=== PATIENT | male | born 1985 | race Caucasian/White ===

== ENCOUNTER 2022-04-22 08:56 | Outpatient (CLI) | payer BC, SELFPAY ==
[2022-04-22 13:38] LABS: Chloride* 102 mmol/L (96-114); Potassium* 5.5 mmol/L (3.6-5.1); Sodium* 138 mmol/L (135-149)
[2022-04-22 13:41] LABS: Blood Urea Nitrogen* 19 mg/dL (5-24); Calcium* 9.4 mg/dL (8.4-10.6); Carbon Dioxide* 28 mmol/L (20-32); Cholesterol* 196 mg/dL (90-199); Creatinine* 0.9 mg/dL (0.5-1.5); Estimated Glomerular Filt Rate 114 ml/min; Glucose* 89 mg/dL (60-115); Triglycerides* 61 mg/dL (40-149)
[2022-04-22 13:42] LABS: HDL Cholesterol* 54 mg/dL (>=40); LDL Cholesterol Calculated 130 mg/dL (<100)
== END 2022-04-22 08:57 | disposition home or self-care (01) ==
PROVIDERS: PCP Family Medicine; Visit Provider Family Medicine
DX: Z13.1 Encounter for screening for diabetes mellitus (principal); Z13.6 Encounter for screening for cardiovascular disorders
CPT/HCPCS: 80048; 80061

== ENCOUNTER 2022-05-07 14:45 | Outpatient (CLI) | payer BC, SELFPAY ==
--- NOTE | 2022-05-07 14:45 | CRLHL7_ITS ---
For Patients: As a result of the 21st Century Cures Act, medical imaging exams and procedure reports are released immediately into your electronic medical record. You may view this report before your referring provider. If you have questions, please contact your health care provider. ULTRASOUND VENOUS BILATERAL LOWER EXTREMITIES COMPARISON: None. TECHNIQUE: Grayscale and color spectral Doppler ultrasound imaging of bilateral lower extremity deep and superficial venous system was performed. Provocative maneuvers were performed in attempt to elicit reflux. CLINICAL HISTORY: 36-year-old male with left leg varicose veins. FINDINGS: The bilateral deep venous system, including the common femoral, femoral and popliteal veins are patent and compressible with no filling defect to suggest thrombus. Bilateral peroneal veins and posterior tibial veins are patent and compressible. Right lower extremity: The deep venous system is competent. The great saphenous vein is patent and compressible. The saphenofemoral junction is competent. There is reflux in the proximal thigh for 5.1 seconds. The diameter is 4 mm. There is reflux in the mid-thigh for 2.7 seconds with a diameter of 4 mm. There is reflux in the distal thigh for 1.7 seconds with a diameter of 4 mm. The great saphenous vein is competent along the calf. Small saphenous vein is patent and compressible and is competent in the mid-portion. Left lower extremity: There is reflux through the common femoral vein for 1.1 seconds. The femoral and popliteal veins are competent. The saphenofemoral junction has reflux for 1 second with a diameter of 9 mm. The proximal great saphenous vein is competent with a diameter of 6 mm. In the mid-portion the vessel is competent with a diameter of 6 mm. In the distal thigh there is reflux for 1.5 seconds and a diameter of 13 mm. There is reflux in the distal thigh for 1.5 seconds. The vessel is competent in the proximal calf. In the mid-calf, there is reflux for 4.2 seconds and a diameter of 6 mm. IMPRESSION: 1. Right lower extremity: Competent deep venous system. Segmental incompetence of the great saphenous vein from the proximal to distal thigh. 2. Left lower extremity: Reflux in the common femoral vein. Segmental incompetence of the great saphenous vein at the saphenofemoral junction, in the distal thigh and in the mid-calf. 3. No deep venous thrombus in the bilateral lower extremities. Blake Schumacher M.D. [email or web address] TOMMY/Dictated by: Blake Schumacher MD @ 05/20/2022 3:07:00 PM (Electronically Signed)
== END 2022-05-07 14:46 | disposition home or self-care (01) ==
LOC: US 14:46
PROVIDERS: PCP Family Medicine; Visit Provider Surgery
DX: I83.92 Asymptomatic varicose veins of left lower extremity (principal)
CPT/HCPCS: 93970